=== PATIENT | female | born 1955 | race Hispanic/Latino ===

== ENCOUNTER 2018-06-08 11:21 | Observation (INO) | payer BC ==
[2018-06-08] MEDS ORDERED: Sodium Chloride 0.9% 2,000 ML IV STA (11:53)
--- NOTE | 2018-06-08 12:07 | ED PDOC ---
Arrival/HPI - General Chief Complaint: Fever Time Seen by Provider: 06/08/18 11:38 Historian: Patient - History of Present Illness Narrative History of Present Illness (Text): 06/08/18 11:58 63 year old F with pmh of cardiac stents presents with chief complaint of fever x3days. Patient report visiting PMD this morning who advised her to present to the emergency department for possible dehydration and further evaluation. Patien t mentioned she had flu like symptoms such as myalgia, runny nose and productive cough w/ green sputum. Patient also complains of one episode of vomiting this morning. Denies abodminal pain or dysuria. Patient denies any chills, headache, dizziness, chest pain, shortness of breath, dyspnea on exertion, cough, abdominal pain, nausea, diarrhea, back pain, neck pain, or any other complaint. Time/Duration: < week Symptom Onset: Sudden Symptom Course: Unchanged Activities at Onset: Light Context: Home Past Medical History - Provider Review Nursing Documentation Reviewed: Yes - Tetanus Immunization Tetanus Immunization: Unknown - Cardiac Hx Cardiac Disorders: Yes Hx MT: Yes - Pulmonary Hx Respiratory Disorders: Yes Hx Asthma: Yes ( A CHILD) - Neurological Hx Paralysis: No - HEENT Hx HEENT Disorder: (WEARS RX GLASSES AND CONTACT LENSES) - Endocrine/Metabolic Hx Endocrine Disorders: Yes Hx Hypothyroidism: Yes - Hematological/Oncological Hx Blood Transfusions: No Hx Blood Transfusion Reaction: No - Integumentary Hx Basal Cell Carcinoma: Yes (SKIN CA TO L ARM ELIU AND LEFT LEG CAUTERIZED) - Musculoskeletal/Rheumatological Hx Musculoskeletal Disorders: No - Genitourinary/Gynecological Hx Genitourinary Disorders: (CYST REMOVED VAGINA) - Psychiatric Hx Emotional Abuse: No Hx Physical Abuse: No Hx Substance Use: No - Past Surgical History Past Surgical History: Unable to Obtain - Surgical History Hx Cardiac Catheterization: Yes (8 STENTS) - Anesthesia Hx Anesthesia Reactions: No Hx Malignant Hyperthermia: No - Suicidal Assessment Feels Threatened In Home Enviroment: No Family/Social History - Physician Review Nursing Documentation Reviewed: Yes Family/Social History: Unknown Family HX Smoking Status: Never Smoked Hx Alcohol Use: Yes (SOCIAL) Frequency of alcohol use: Socially Hx Substance Use: No Allergies/Home Meds Allergies/Adverse Reactions: Allergies levofloxacin [From Levaquin] Allergy (Verified 06/08/18 11:42) URTICARIA Home Medications: Home Meds Medication Instructions Recorded Confirmed Levothyroxine Sodium 75 mcg PO DAILY 08/21/15 06/08/18 Rosuvastatin Calcium [Crestor] 20 mg PO DAILY 09/15/17 06/08/18 Aspirin [Adult Low Dose Aspirin EC] 81 mg PO DAILY 06/08/18 06/08/18 Review of Systems - Review of Systems Constitutional: Fevers. absent: Fatigue ENT: Rhinorrhea Respiratory: Cough, Sputum (green). absent: SOB Cardiovascular: absent: Chest Pain, Palpitations Gastrointestinal: absent: Abdominal Pain Genitourinary Female: absent: Dysuria, Hematuria, Urine Output Changes Musculoskeletal: Myalgias Neurological: absent: Headache, Dizziness Physical Exam Vital Signs Reviewed: Yes Vital Signs Temp Pulse Resp BP Pulse Ox 06/08/18 11:43 98.3 F 118 H 16 85/59 L 92 L Temperature: Afebrile Blood Pressure: Hypotensive Pulse: Tachycardic Respiratory Rate: Normal Appearance: Positive for: Well-Appearing, Non-Toxic, Comfortable Pain Distress: Mild Mental Status: Positive for: Alert and Oriented X 3 - Systems Exam Head: Present: Atraumatic, Normocephalic Pupils: Present: PERRL Extroacular Muscles: Present: EOMI Conjunctiva: Present: Normal Mouth: Present: Dry Neck: Present: Normal Range of Motion Respiratory/Chest: Present: Clear to Auscultation, Good Air Exchange. No: Respiratory Distress, Accessory Muscle Use Cardiovascular: Present: Tachycardic. No: Murmurs Abdomen: No: Tenderness, Distention, Peritoneal Signs Back: Present: Normal Inspection Upper Extremity: Present: Normal Inspection. No: Cyanosis, Edema Lower Extremity: Present: Normal Inspection. No: Edema Neurological: Present: GCS=15, CN II-XII Intact, Speech Normal Skin: Present: Warm, Dry, Normal Color. No: Rashes Psychiatric: Present: Alert, Oriented x 3, Normal Insight, Normal Concentration Medical Decision Making ED Course and Treatment: 06/08/18 11:58 Impression: 63 year old F presents with chief complaint of fever x3days. Patient also mentioned she had flu like symptoms such as myalgia, runny nose and productive cough w/ green sputum. Patient also complains of one episode of vomiting this m orning Plan: -- Labs -- Chest X-ray -- Toradol -- Reassess and disposition Prior Visits: Notes and results from previous visits were reviewed. Patient was last seen in the emergency department on Progress Notes: 06/08/18 12:43 Chest X Ray: No active disease 06/08/18 13:[address] Reid who is requesting CT to evaluate for intrabdominal source due to elevated wbc UA shows 10-15wbc and leukocytes. Denies dysuria. However, due to elevated wbc, will treat pending ucx 06/08/18 15:31 IMPRESSION: There is severe mural thickening and edema in the antrum of the stomach consistent with gastritis. 06/08/18 15:31 06/08/18 15:32 - RAD Interpretation Radiology Orders: 06/08/18 11:52 CHEST PORTABLE [RAD] Stat - Medication Orders Current Medication Orders: Sodium Chloride (Sodium Chloride 0.9%) 2,000 mls @ 999 mls/hr IV .Q2H1M STA Stop: 06/08/18 13:53 Discontinued Medications Ketorolac Tromethamine (Toradol) 30 mg IVP STAT STA Stop: 06/08/18 11:54 - Scribe Statement The provider has reviewed the documentation as recorded by the Joy Hager All medical record entries made by the Joy were at my direction and personally dictated by me. I have reviewed the chart and agree that the record accurately reflects my personal performance of the history, physical exam, medical decision making, and the department course for this patient. I have also personally directed, reviewed, and agree with the discharge instructions and disposition. Disposition/Present on Arrival - Present on Arrival Any Indicators Present on Arrival: No History of DVT/PE: No History of Uncontrolled Diabetes: No Urinary Catheter: No History of Decub. Ulcer: No History Surgical Site Infection Following: None - Disposition Have Diagnosis and Disposition been Completed?: Yes Diagnosis: Leukocytosis, UTI (urinary tract infection), Dehydration Disposition: HOSPITALIZED Disposition Time: 13:09 Patient Plan: Observation Condition: FAIR
[2018-06-08 12:30] LABS: BASO # 0.04 K/mm3 (0.0-2.0); BASO % 0.1 % (0.0-3.0); EOS % 0.1 % (1.5-5.0); HEMOGLOBIN 13.4 g/dL (12.0-16.0); LYMPH # 1.1 (1.2-3.4); LYMPH % 3.8 % (22.0-35.0); MEAN CELL VOLUME 92.1 fl (80.0-105.0); MEAN CORPUSCULAR HEMOGLOBIN 31.1 pg (25.0-35.0); MEAN CORPUSCULAR HGB CONC 33.8 g/dl (31.0-37.0); MONO # 1.2 (0.1-0.6); MONO % 3.9 % (1.0-6.0); PLATELET COUNT 292 10^3/uL (120.0-450.0); RBC 4.31 10^6/uL (3.5-6.1); RED CELL DISTRIBUTION WIDTH 12.8 % (11.5-14.5)
[2018-06-08 12:32] LABS: VENOUS BLOOD GAS PO2 37 mm/Hg (30-55); VENOUS BLOOD PH 7.46 (7.32-7.43)
--- NOTE | 2018-06-08 12:37 | RAD ---
Date of service: 06/08/2018 HISTORY: cough COMPARISON: 04/04/2014 TECHNIQUE: 1 view obtained. FINDINGS: LUNGS: No active pulmonary disease. PLEURA: No significant pleural effusion identified, no pneumothorax apparent. CARDIOVASCULAR: No aortic atherosclerotic calcification present. Normal cardiac size. No pulmonary vascular congestion. OSSEOUS STRUCTURES: No significant abnormalities. VISUALIZED UPPER ABDOMEN: Normal. OTHER FINDINGS: None. IMPRESSION: No active disease.
[2018-06-08 12:39] LABS: ALB/GLOB RATIO 0.9 (1.1-1.8); ALBUMIN 3.8 g/dL (3.0-4.8); ALT/SGPT 674 U/L (7-56); AST/SGOT 725 U/L (14-36); BLOOD UREA NITROGEN 11 mg/dL (7-21); CALCIUM 8.6 mg/dL (8.4-10.5); GFR NON-AFRICAN AMERICAN 56; LIPASE 101 U/L (23-300)
[2018-06-08 13:14] LABS: BAND 2 % (0-2); LYMPHOCYTE 5 % (22.0-35.0); MONOCYTE 2 % (1.0-6.0); NEUTROPHIL 91 % (50.0-70.0)
[2018-06-08 13:15] LABS: PLATELET ESTIMATE NORMAL (NORMAL)
--- NOTE | 2018-06-08 13:31 | CP.PCM.HP ---
<Candido Pereyra - Last Filed: 06/08/18 16:31> History of Present Illness - History of Present Illness History of Present Illness: PGY-1 Medicine H&P for Dr. Reid CC: Intermittent fevers HPI: Patient is a 63 year old female with a past medical history of CAD s/p 8 stents, hyperlipidemia, and hypothyroidism presenting with fevers for 3 days. She states that she has been having fevers, chills, generalized fatigue for 3 or 4 days. She admits to having nausea and one episode of vomiting this morning which prompted her to visit her PMD this morning who advised her to present to the emergency department for further evaluation. Patient admits to having flu-like symptoms such as myalgia, runny nose, and a productive cough with green sputum. She states that she lives at home with her son who was recently sick with flu- like symptoms. She denies recent travel, having pets, or sick contacts at work. She denies headache, dizziness, chest pain, shortness of breath, dyspnea on exertion, cough, abdominal pain, diarrhea, back pain, neck pain, hematuria, dysuria, or any other complaints. 12 point ROS reviewed and negative except stated in HPI. PMHx: CAD s/p 8 stents, hyperlipidemia, and hypothyroidism PSHx: 7 cardiac stents in 2015, 1 stent in 2016 Allergies: Levofloxacin- rash Family Hx: Mother had a heart attack at age 70 and hypertension. Father had Parkinson disease. Social history: Denies tobacco or drug use. Occasionally drinks wine with dinner. 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 Lives at home with son. Medications: ASA, Levothyroxine 75mg, Crestor 20mg PMD: Dr. Knowles Marketing Analyst: Dr. Tinajero Present on Admission - Present on Admission Any Indicators Present on Admission: No History of DVT/PE: No History of Uncontrolled Diabetes: No Urinary Catheter: No Decubitus Ulcer Present: No Past Patient History - Tetanus Immunizations Tetanus Immunization: Unknown - Past Social History Smoking Status: Never Smoked - CARDIAC Hx Cardiac Disorders: Yes Hx Heart Attack: Yes - PULMONARY Hx Respiratory Disorders: Yes Hx Asthma: Yes ( A CHILD) - NEUROLOGICAL Hx Paralysis: No - HEENT Hx HEENT Problems: (WEARS RX GLASSES AND CONTACT LENSES) - ENDOCRINE/METABOLIC Hx Endocrine Disorders: Yes Hx Hypothyroidism: Yes - HEMATOLOGICAL/ONCOLOGICAL Hx Blood Transfusions: No Hx Blood Transfusion Reaction: No - INTEGUMENTARY Hx Basil Cell: Yes (SKIN CA TO L ARM ELIU AND LEFT LEG CAUTERIZED) - MUSCULOSKELETAL/RHEUMATOLOGICAL Hx Musculoskeletal Disorders: No - GENITOURINARY/GYNECOLOGICAL Hx Genitourinary Disorders: (CYST REMOVED VAGINA) - PSYCHIATRIC Hx Emotional Abuse: No Hx Physical Abuse: No Hx Substance Use: No - SURGICAL HISTORY Hx Cardiac Catheterization: Yes (8 STENTS) - ANESTHESIA Hx Anesthesia Reactions: No Hx Malignant Hyperthermia: No Meds Allergies/Adverse Reactions: Allergies Allergy/AdvReac Type Severity Reaction Status Date / Time levofloxacin [From Levaquin] Allergy URTICARIA Verified 06/08/18 17:27 Physical Exam - Constitutional Appears: Well, Non-toxic, No Acute Distress - Head Exam Head Exam: ATRAUMATIC, NORMAL INSPECTION - Eye Exam Eye Exam: EOMI, Normal appearance - ENT Exam ENT Exam: Mucous Membranes Moist - Neck Exam Neck exam: Positive for: Normal Inspection - Respiratory Exam Respiratory Exam: Clear to Auscultation Bilateral, NORMAL BREATHING PATTERN. absent: Rales, Rhonchi, Wheezes, Respiratory Distress - Cardiovascular Exam Cardiovascular Exam: REGULAR RHYTHM, +S1, +S2. absent: Gallop, Rubs, Systolic Murmur - GI/Abdominal Exam GI & Abdominal Exam: Normal Bowel Sounds, Soft. absent: Distended, Firm, Guarding, Organomegaly, Tenderness Additional comments: Herrera sign negative. No tenderness at Mcburneys point. - Extremities Exam Extremities exam: Positive for: normal inspection. Negative for: calf tenderness, joint swelling, pedal edema - Back Exam Back exam: NORMAL INSPECTION. absent: CVA tenderness (L), CVA tenderness (R), paraspinal tenderness - Neurological Exam Neurological exam: Alert, CN II-XII Intact, Oriented x3 - Psychiatric Exam Psychiatric exam: Normal Affect, Normal Mood - Skin Skin Exam: Dry, Intact, Normal Color, Warm Additional comments: No rash noted Results - Vital Signs Recent Vital Signs: Last Vital Signs Temp 98.3 F 06/08/18 11:43 Pulse 100 H 06/08/18 13:30 Resp 18 06/08/18 13:30 BP 117/72 06/08/18 13:30 Pulse Ox 96 06/08/18 13:30 - Labs Result Diagrams: 06/08/18 12:00 06/08/18 12:00 Labs: Laboratory Results - last 24 hr 06/08/18 06/08/18 06/08/18 12:00 12:00 12:00 WBC 30.0 H* RBC 4.31 Hgb 13.4 Hct 39.7 MCV 92.1 MCH 31.1 MCHC 33.8 RDW 12.8 Plt Count 292 MPV 9.0 Neut % (Auto) 92.1 H Lymph % (Auto) 3.8 L Hand % (Auto) 3.9 Eos % (Auto) 0.1 L Baso % (Auto) 0.1 Lymph # (Auto) 1.1 L Hand # (Auto) 1.2 H Eos # (Auto) 0.0 Baso # (Auto) 0.04 Absolute Neuts (auto) 27.69 H Neutrophils % (Manual) 91 H Band Neutrophils % 2 Lymphocytes % (Manual) 5 L Monocytes % (Manual) 2 Platelet Evaluation Normal pO2 VBG pH VBG pCO2 VBG HCO3 VBG Total CO2 VBG O2 Sat (Calc) VBG Base Excess VBG Potassium Glucose Lactate FiO2 Sodium 135 Potassium 3.7 Chloride 99 Carbon Dioxide 26 Anion Gap 14 BUN 11 Creatinine 1.0 Est GFR ( Amer) > 60 Est GFR (Non-Af Amer) 56 Random Glucose 135 H Calcium 8.6 Phosphorus 3.0 Magnesium 2.2 Total Bilirubin 1.5 H AST 725 H ALT 674 H Alkaline Phosphatase 524 H Total Protein 8.0 Albumin 3.8 Globulin 4.1 Albumin/Globulin Ratio 0.9 L Lipase 101 Venous Blood Potassium Influenza Typ A,B (EIA) Negative for flu a/b 06/08/18 12:20 WBC RBC Hgb Hct MCV MCH MCHC RDW Plt Count MPV Neut % (Auto) Lymph % (Auto) Hand % (Auto) Eos % (Auto) Baso % (Auto) Lymph # (Auto) Hand # (Auto) Eos # (Auto) Baso # (Auto) Absolute Neuts (auto) Neutrophils % (Manual) Band Neutrophils % Lymphocytes % (Manual) Monocytes % (Manual) Platelet Evaluation pO2 37 VBG pH 7.46 H VBG pCO2 36.0 L VBG HCO3 25.6 VBG Total CO2 26.7 VBG O2 Sat (Calc) 71.5 H VBG Base Excess 2.0 VBG Potassium 3.8 Glucose 138 H Lactate 1.6 FiO2 21.0 Sodium 134.0 Potassium Chloride 101.0 Carbon Dioxide Anion Gap BUN Creatinine Est GFR ( Amer) Est GFR (Non-Af Amer) Random Glucose Calcium Phosphorus Magnesium Total Bilirubin AST ALT Alkaline Phosphatase Total Protein Albumin Globulin Albumin/Globulin Ratio Lipase Venous Blood Potassium 3.8 Influenza Typ A,B (EIA) Assessment & Plan - Assessment and Plan (Free Text) Assessment: Patient is a 63 year old female with a past medical history of CAD s/p 8 stents, hyperlipidemia, and hypothyroidism presenting with fevers for 3 days. Plan: SIRS - Follow up CT abd/pelvis - CXR: no acute disease - WBC: 30,000 - UA: trace LE, few WBC - Follow up procalcitonin - Follow up blood cultures and urine culture - Flagyl 500mg IV Q8 (Started on 06/08) - Rocephin 1g IV QD (Started on 06/08) - Start NS @ 60 mLs/hr - Received 2 boluses of NS in ED Transaminitis - AST: 725 - ALT: 674 - Alkaline phosphatase: 524 - GI consulted, Dr. Betancourt - Follow up CT abd/pelvis - Will consider RUQ ultrasound if CT abd/pelvis is negative - Follow up hepatitis panel - Avoid hepatotoxic agents - Continue to monitor Hyperlipidemia - Hold home Crestor Hypothyroidism - Continue home Synthroid 75mg PO QD Hx of cardiac stents - Continue home ASA 81mg PO QD - Follow up EKG - Last echo (09/15/2017): LVEF of 57% - Last stress test (09/15/2017): abnormal stress test but unchanged from previous stress test in 2017 - Follows up with Dr. Tinajero as outpatient Proophylaxis: - SCD's Patient seen and case discussed with attending, Dr. Reid. Candido Pereyra, PGY-1 <Eliud Reid - Last Filed: 06/11/18 15:34> Results - Vital Signs Recent Vital Signs: Last Vital Signs Temp 98.7 F 06/10/18 06:00 Pulse 82 06/10/18 06:00 Resp 20 06/10/18 06:00 BP 111/69 06/10/18 06:00 Pulse Ox 95 06/10/18 06:00 - Labs Result Diagrams: 06/10/18 06:20 06/10/18 06:20 Labs: Laboratory Results - last 24 hr 06/10/18 06:20 EBV Capsid Ag IgG Ab 124.00 H EBV Capsid Ag IgM Ab <36.00 EBV Nuclear Antigen Ab 67.70 H EBV Interpretation See note Attending/Attestation - Attestation I have personally seen and examined this patient.: Yes I have fully participated in the care of the patient.: Yes I have reviewed all pertinent clinical information: Yes Notes (Text): 06/11/18 15:32 Medical record note made by the resident after discussion with my direction and input after the patient was personally seen and examined by me. I have reviewed the chart and agree that the record accurately reflects by personal performance of the history, physical exam, data review, and medical decision-making, in the course for the patient. I have also personally directed the plan of care. 63 year old female with PMH of CAD s/p 8 stents, hyperlipidemia, and hypothyroidism is admitted w with fevers ,chills, and generalized fatigue for 3 or 4 days. She is found to have leukocytosis WBC 30,000and elevated LFT. AST was elevated at 725; ALT elevated at 674; ALP elevated at 524. CT abdomen/pelvis showed severe mural thickening and edema in the antrum of the stomach consistent with gastritis.; We will start patient on IV antibiotics , will follow up cultures and will get right upper quadrant USG and GI consult. Avoid hypotension and hepatotoxic medications. We will monitor LFT Management plan was discussed in detail with patient. Education was provided.
[2018-06-08 13:39] LABS: PH,URINE 5.5 (4.7-8.0); URINE BILIRUBIN MODERATE (NEGATIVE); URINE BLOOD MODERATE (NEGATIVE); URINE GLUCOSE (UA) NEGATIVE (NEGATIVE); URINE LEUKOCYTE ESTERASE MODERATE Leu/uL (NEGATIVE); URINE PROTEIN 100 mg/dL (<30 mg/dL)
[2018-06-08 13:42] LABS: URINE APPEARANCE TURBID (CLEAR); URINE COLOR YELLOW (YELLOW)
[2018-06-08 13:43] LABS: URINE RBC 0 - 2 /hpf (0-2)
[2018-06-08 13:44] LABS: URINE BACTERIA MANY /hpf; URINE COARSE GRANULAR CAST LARGE /hpf
[2018-06-08] MEDS ORDERED: cefTRIAXone (Rocephin) 2 gm Inj IVPB STA (13:53)
[2018-06-08] MEDS ORDERED: cefTRIAXone 1 GM/100 ML BAG IVPB STA (13:57)
[2018-06-08] MEDS ORDERED: Iohexol 350 MG/100 ML VIAL ONE (14:19)
--- NOTE | 2018-06-08 15:32 | CT ---
Date of service: 06/08/2018 PROCEDURE: CT Abdomen and Pelvis with contrast HISTORY: elevated wbc COMPARISON: None. TECHNIQUE: Contrast dose: 100 cc of Omni 350 Radiation dose: Total exam DLP = 447.2 mGy-cm. This CT exam was performed using one or more of the following dose reduction techniques: Automated exposure control, adjustment of the mA and/or kV according to patient size, and/or use of iterative reconstruction technique. FINDINGS: LOWER THORAX: Unremarkable. LIVER: Unremarkable. No gross lesion or ductal dilatation. GALLBLADDER AND BILE DUCTS: Unremarkable. PANCREAS: Unremarkable. No gross lesion or ductal dilatation. SPLEEN: Unremarkable. ADRENALS: Unremarkable. No mass. KIDNEYS AND URETERS: Unremarkable. No hydronephrosis. No solid mass. VASCULATURE: Unremarkable. No aortic aneurysm. No aortic atherosclerotic calcification or mural plaque present. BOWEL: There is severe mural thickening and edema in the antrum of the stomach consistent with gastritis. APPENDIX: Normal appendix. PERITONEUM: Unremarkable. No free fluid. No free air. LYMPH NODES: Unremarkable. No enlarged lymph nodes. BLADDER: Unremarkable. REPRODUCTIVE: Unremarkable. BONES: No acute fracture. OTHER FINDINGS: None. IMPRESSION: There is severe mural thickening and edema in the antrum of the stomach consistent with gastritis.
[2018-06-08] MEDS: Sodium Chloride 0.9% 1,000 ML IV SCH (17:38)
--- NOTE | 2018-06-08 21:32 | CARD ---
APPROVED REPORT Date of service: 06/08/2018 EKG Measurement Heart [id number] <Conclusion> Normal sinus rhythm Inferior infarct, age undetermined T wave abnormalities Abnormal ECG
[2018-06-08 22:11] VITALS: BMI 25.8
[2018-06-08] MEDS ORDERED: Pneumococcal 23-Valent Vaccine IM ONE (22:11)
[2018-06-08] MEDS ORDERED: Influenza Vaccine 60 mcg/0.5 mL SYR (4YR UP) IM ONE (22:11)
[2018-06-08] MEDS: metroNIDAZOLE IV 500 mg/100 ml 500 MG/100 ML BAG IVPB SCH (22:58)
[2018-06-09] MEDS: metroNIDAZOLE IV 500 mg/100 ml 500 MG/100 ML BAG IVPB SCH ×3 (06:20→21:16)
[2018-06-09 07:14] LABS: BASO # 0.03 K/mm3 (0.0-2.0); BASO % 0.1 % (0.0-3.0); EOS # 0.2 (0.0-0.7); EOS % 0.9 % (1.5-5.0); LYMPH # 1.7 (1.2-3.4); LYMPH % 7.9 % (22.0-35.0); MEAN CELL VOLUME 93.3 fl (80.0-105.0); MEAN CORPUSCULAR HGB CONC 32.2 g/dl (31.0-37.0); MEAN PLATELET VOLUME 9.1 fl (7.0-11.0); MONO # 0.9 (0.1-0.6); MONO % 3.9 % (1.0-6.0); RBC 3.73 10^6/uL (3.5-6.1); RED CELL DISTRIBUTION WIDTH 13.5 % (11.5-14.5); WHITE BLOOD COUNT 22.1 10^3/uL (4.5-11.0)
[2018-06-09 07:30] LABS: ALB/GLOB RATIO 0.9 (1.1-1.8); ALBUMIN 3.1 g/dL (3.0-4.8); ALT/SGPT 399 U/L (7-56); AST/SGOT 278 U/L (14-36); BLOOD UREA NITROGEN 10 mg/dL (7-21); CALCIUM 7.7 mg/dL (8.4-10.5); GFR NON-AFRICAN AMERICAN > 60
[2018-06-09 07:39] LABS: HEMOGLOBIN 11.2 g/dL (12.0-16.0)
--- NOTE | 2018-06-09 07:40 | CP.PCM.PN ---
<Candido Pereyra - Last Filed: 06/09/18 12:01> Subjective - Date & Time of Evaluation Date of Evaluation: 06/09/18 Time of Evaluation: 07:35 - Subjective Subjective: PGY-1 Medicine progress note for Dr. Reid Patient seen and examined at bedside. No acute events overnight. Patient states that she is feeling better and that her appetite is better. Patient is not complaining of any pain. She denies fevers, chills, cough, shortness of breath, chest pain, abdominal pain, nausea, vomiting, diarrhea, dysuria, or any other complaints. Objective - Vital Signs/Intake and Output Vital Signs (last 24 hours): Temp Pulse Resp BP Pulse Ox 99.6 F 101 H 20 121/66 95 06/08/18 17:53 06/08/18 21:58 06/08/18 21:58 06/08/18 17:53 06/08/18 17:53 - Medications Medications: Current Medications Aspirin (Ecotrin) 81 mg PO DAILY [facility] Metronidazole (Flagyl) 500 mg in 100 mls @ 100 mls/hr IVPB Q8 [facility]; Protocol Last Admin: 06/09/18 06:20 Dose: 100 mls/hr Ceftriaxone Sodium (Rocephin 1 Gram Ivpb) 1 gm in 100 mls @ 100 mls/hr IVPB DAILY [facility]; Protocol Sodium Chloride (Sodium Chloride 0.9%) 1,000 mls @ 60 mls/hr IV .[id number] [facility] Last Admin: 06/08/18 17:38 Dose: 60 mls/hr Levothyroxine Sodium (Synthroid) 75 mcg PO DAILY [facility] Pantoprazole Sodium (Protonix Inj) 40 mg IVP Q12 [facility] Last Admin: 06/08/18 22:59 Dose: 40 mg - Labs Labs: 06/08/18 12:00 06/09/18 06:20 - Additional Findings Additional findings: - Constitutional Appears: Well, Non-toxic, No Acute Distress - Head Exam Head Exam: ATRAUMATIC, NORMAL INSPECTION - Eye Exam Eye Exam: EOMI, Normal appearance - ENT Exam ENT Exam: Mucous Membranes Moist - Neck Exam Neck exam: Positive for: Normal Inspection - Respiratory Exam Respiratory Exam: Clear to Auscultation Bilateral, NORMAL BREATHING PATTERN. absent: Rales, Rhonchi, Wheezes, Respiratory Distress - Cardiovascular Exam Cardiovascular Exam: REGULAR RHYTHM, +S1, +S2. absent: Gallop, Rubs, Systolic Murmur - GI/Abdominal Exam GI & Abdominal Exam: Normal Bowel Sounds, Soft. absent: Distended, Firm, Guarding, Organomegaly, Tenderness - Extremities Exam Extremities exam: Positive for: normal inspection. Negative for: calf tenderness, joint swelling, pedal edema - Back Exam Back exam: NORMAL INSPECTION. absent: CVA tenderness (L), CVA tenderness (R), paraspinal tenderness - Neurological Exam Neurological exam: Alert, CN II-XII Intact, Oriented x3 - Psychiatric Exam Psychiatric exam: Normal Affect, Normal Mood - Skin Skin Exam: Dry, Intact, Normal Color, Warm Assessment and Plan - Assessment and Plan (Free Text) Assessment: Patient is a 63 year old female with a past medical history of CAD s/p 8 stents, hyperlipidemia, and hypothyroidism presenting with intermittent fevers. Plan: SIRS - CT abd/pelvis: severe mural thickening and edema in antrum of study consistent with gastritis. - Abdominal ultrasound: No cholelithiasis or biliary dilatation. Normal appearance of liver. - CXR: no acute disease - WBC: 30,000-->22,100 - Abs neutrophils: 27,000-->19,000 - UA: trace LE, few WBC - Follow up procalcitonin - Follow up blood cultures and urine culture - Flagyl 500mg IV Q8 (Started on 06/08) - Rocephin 1g IV QD (Started on 06/08) - Start NS @ 60 mLs/hr - Received 2 boluses of NS in ED Transaminitis - AST: 725-->278 - ALT: 674-->399 - Alkaline phosphatase: 524-->361 - CT abd/pelvis: severe mural thickening and edema in antrum of study consistent with gastritis. - Follow up abdominal ultrasound to rule out gall stones - GI consulted, - Acetaminophen, salicylate levels negative - Follow up hepatitis panel - Avoid hepatotoxic agents - Continue to monitor Hyperlipidemia - Hold home Crestor Hypothyroidism - Continue home Synthroid 75mg PO QD - TSH, Free T4 WNL Hx of cardiac stents - Continue home ASA 81mg PO QD - EKG: NSR @97, No ST changes - Last echo (09/15/2017): LVEF of 57% - Last stress test (09/15/2017): abnormal stress test but unchanged from previous stress test in 2017 - Follows up with Dr. Tinajero as outpatient Proophylaxis: - SCD's Patient seen and case discussed with attending, Dr. Reid. Candido Pereyra, PGY-1 <Eliud Reid - Last Filed: 06/11/18 15:31> Objective - Vital Signs/Intake and Output Vital Signs (last 24 hours): Temp Pulse Resp BP Pulse Ox 98.7 F 82 20 111/69 95 06/10/18 06:00 06/10/18 06:00 06/10/18 06:00 06/10/18 06:00 06/10/18 06:00 - Labs Labs: 06/10/18 06:20 06/10/18 06:20 Attending/Attestation - Attestation I have personally seen and examined this patient.: Yes I have fully participated in the care of the patient.: Yes I have reviewed all pertinent clinical information, including history, physical exam and plan: Yes Notes (Text): 06/11/18 15:31 Medical record note made by the resident after discussion with my direction and input after the patient was personally seen and examined by me. I have reviewed the chart and agree that the record accurately reflects by personal performance of the history, physical exam, data review, and medical decision-making, in the course for the patient. I have also personally directed the plan of care.
[2018-06-09 07:50] LABS: FREE T4 1.61 ng/dL (0.78-2.19)
[2018-06-09 08:02] LABS: BILIRUBIN,DIRECT 0.4 mg/dL (0.0-0.4); GAMMA GLUTAMYL TRANSPEPTIDASE 214 U/L (8-78)
[2018-06-09 08:04] LABS: ACETAMINOPHEN < 10.0 ug/ml (10.0-20.0); SALICYLATE < 1 mg/dL (2.0-20.0)
[2018-06-09 08:12] LABS: TROPONIN I < 0.01 ng/mL
[2018-06-09] MEDS ORDERED: Levothyroxine 75 MCG TAB PO SCH ×2 (10:00→20:06)
--- NOTE | 2018-06-09 10:19 | US ---
Date of service: 06/09/2018 HISTORY: transaminitis COMPARISON: CT abdomen and pelvis from 06/08/2018. TECHNIQUE: Grayscale imaging was performed. FINDINGS: LIVER: Measures 16.0 cm. Normal echogenicity of the liver parenchyma. No mass. No intrahepatic bile duct dilatation. GALLBLADDER: There are no gallstones, wall thickening or pericholecystic fluid. The sonographic Herrera's sign is negative. COMMON BILE DUCT: Measures 4.7 mm. No stones. No dilatation. PANCREAS: Normal in size and echotexture. No mass. No ductal dilatation. RIGHT KIDNEY: Measures 11.4cm. Normal echogenicity. No calculus, mass, or hydronephrosis. LEFT KIDNEY: Measures 11.0cm. Normal echogenicity. No calculus, mass, or hydronephrosis. There is a 7 x 8 x 8 mm simple cyst in the lower pole. SPLEEN: Normal in size and contour. No mass. AORTA: No aneurysmal dilatation. IVC: Unremarkable. OTHER FINDINGS: None. IMPRESSION: Normal sonographic appearance of the liver. No cholelithiasis or biliary dilatation.
[2018-06-09] MEDS: cefTRIAXone 1 gm 1 GM/100 ML BAG IVPB SCH (11:11)
[2018-06-09] MEDS: Sodium Chloride 0.9% 1,000 ML IV SCH (11:12)
[2018-06-09 12:42] LABS: HEPATITIS B SURFACE AG Negative (NEGATIVE)
[2018-06-09 12:48] LABS: HEPATITIS A IGM NEGATIVE (NEGATIVE); HEPATITIS B CORE AB NEGATIVE (NEGATIVE)
[2018-06-09 13:00] LABS: HEPATITIS C ANTIBODY NEGATIVE (NEGATIVE)
[2018-06-09] MEDS: Pantoprazole 40 mg EC Tab PO SCH (16:22)
[2018-06-09 17:01] VITALS: TEMP 98.7
--- NOTE | 2018-06-09 21:51 | CON ---
DATE: 06/09/2018 GASTROENTEROLOGY CONSULTATION REQUESTING PHYSICIAN: Eliud Reid MD REASON FOR CONSULTATION: I have been asked to see this 63-year-old female with a history of coronary artery disease status post eight coronary artery stents, who comes to the hospital with three days of fever, chills, and fatigue. Her son is home with a similar febrile illness. Approximately two weeks ago, the patient had a self-limited course of a diarrheal illness associated with nausea, vomiting and diarrhea, which she thinks she contracted from her grandchildren. The patient recovered from that diarrheal illness and develop these fevers and chills for the last three days. She denies any recent travels, cough, shortness of breath, chest pain, recent abdominal pain, nausea, vomiting, or diarrhea. She denies ingestion of any unusual medications or excessive use of acetaminophen. She denies alcohol abuse. MEDICATIONS AT HOME: Include aspirin, Crestor, and Levoxyl. PAST MEDICAL HISTORY: Again is notable for coronary artery disease status post placement of eight coronary artery stents, hypothyroidism, and hyperlipidemia. PAST SURGICAL HISTORY: Unremarkable. FAMILY HISTORY: Notable for mother with an NC at the age of 75 with Parkinson's. SOCIAL HISTORY: She denies cigarette smoking or alcohol use. 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 PHYSICAL EXAMINATION: GENERAL: Well-developed female, lying in bed, in no acute distress. VITAL SIGNS: Reveal temperature of 98.2, blood pressure 112/72, and heart rate 91. HEENT: Reveals sclerae to be white. Conjunctivae pink. NECK: Supple. CHEST: Lungs are clear. HEART: Exam reveals regular rate and rhythm. ABDOMEN: Soft, nontender. No mass. EXTREMITIES: Show no edema. LABORATORY DATA: Reveal on admission to the hospital white blood cell count of 30,000, this morning it was 22.1. Chemistries reveal AST of 278, ALT of 399, alkaline phosphatase of 361, total bilirubin of 0.6; on admission to the hospital the AST and ALT were 725 and 674 respectively with an alkaline phosphatase of 524. CT of the abdomen and pelvis revealed normal liver and gallbladder as did an ultrasound. No stones were seen. There was no biliary dilatation. Procalcitonin was elevated at 0.9, serum haptoglobin was 491.1. Hepatitis A antibody is negative. Blood cultures negative after 24 hours. IMPRESSION: A 63-year-old female with three days of fevers, chills with leukocytosis and elevated liver enzymes, which are trending downward. I suspect that this is some type of a viral syndrome. Her white blood cell count is also trending downward. CT of the abdomen and pelvis is negative for any acute inflammatory changes or fluid collection. Tox screen was negative for acetaminophen. RECOMMENDATIONS: 1. Check hepatitis B and C serology. 2. We will request Eva-Dominguez serology to rule out mononucleosis. 3. Follow liver enzymes and white blood cell count. Figueroa Dutta MD
[2018-06-10] MEDS: metroNIDAZOLE IV 500 mg/100 ml 500 MG/100 ML BAG IVPB SCH (05:47)
[2018-06-10] MEDS: Pantoprazole 40 mg EC Tab PO SCH (05:48)
[2018-06-10] MEDS: Sodium Chloride 0.9% 1,000 ML IV SCH (05:48)
[2018-06-10 07:05] LABS: BASO # 0.03 K/mm3 (0.0-2.0); BASO % 0.2 % (0.0-3.0); EOS # 0.7 (0.0-0.7); EOS % 4.2 % (1.5-5.0); HEMOGLOBIN 11.1 g/dL (12.0-16.0); LYMPH # 2.1 (1.2-3.4); LYMPH % 13.8 % (22.0-35.0); MEAN CELL VOLUME 92.7 fl (80.0-105.0); MEAN CORPUSCULAR HGB CONC 32.4 g/dl (31.0-37.0); MONO # 0.5 (0.1-0.6); MONO % 3.1 % (1.0-6.0); RBC 3.7 10^6/uL (3.5-6.1); RED CELL DISTRIBUTION WIDTH 13.4 % (11.5-14.5); WHITE BLOOD COUNT 15.4 10^3/uL (4.5-11.0)
[2018-06-10 07:16] VITALS: BP 111/69; PULSE 82; RESP 20; O2SAT 95
[2018-06-10 08:08] LABS: ALB/GLOB RATIO 0.9 (1.1-1.8); ALBUMIN 3.1 g/dL (3.0-4.8); ALT/SGPT 251 U/L (7-56); AST/SGOT 105 U/L (14-36); BLOOD UREA NITROGEN 9 mg/dL (7-21); CALCIUM 8.1 mg/dL (8.4-10.5); GFR NON-AFRICAN AMERICAN > 60
[2018-06-10] MEDS: cefTRIAXone 1 gm 1 GM/100 ML BAG IVPB SCH (09:39)
--- NOTE | 2018-06-10 12:23 | PN ---
DATE: 06/10/2018 SUBJECTIVE: The patient is lying in bed, comfortable. She denies any abdominal pain, nausea, vomiting, diarrhea. She denies any fevers or chills. She is tolerating solid food. PHYSICAL EXAMINATION VITAL SIGNS: Reveal temperature of 98.7, blood pressure 111/69, heart rate is 82. HEENT: Reveal sclerae to be white. Conjunctivae pink. NECK: Supple. CHEST: Lungs are clear. HEART: Reveals regular rate and rhythm. ABDOMEN: Soft and nontender. No hepatomegaly. EXTREMITIES: Show no edema. LABORATORY DATA: Reveals white blood cell count 15.4, hemoglobin 11.1. Chemistries reveal AST down to 105, ALT down to 251, alkaline phosphatase down to 311. IMPRESSION: A 63-year-old female admitted to the hospital with fevers, chills, elevated white blood cell count, elevated liver enzymes. Hepatitis serology is negative. I suspect that the patient's presentation is due to a viral syndrome. Her LFTs and white blood cell count are trending downward. RECOMMENDATIONS 1. The patient is stable, from a GI standpoint to be discharged home. I have asked her to follow up with me in the office where I will follow up per downward trending elevated liver enzymes. 2. Await Eva-Dominguez virus serology. Figueroa Dutta MD
--- NOTE | 2018-06-10 14:24 | CP.PCM.DIS ---
<Candido Pereyra - Last Filed: 06/10/18 17:38> Provider - Provider Date of Admission: 06/08/18 13:40 Attending physician: Eliud Reid MD Primary care physician: Maciel Knowles MD Consults: 06/09/18 08:16 Physician Consult Routine Comment: Consulting Provider: Figueroa Dutta Consulting Physician: Figueroa Dutta Reason for Consult: elevated liver enzymes, leukocytosis Time Spent in preparation of Discharge (in minutes): 45 Diagnosis - Discharge Diagnosis (1) Dehydration Status: Resolved (2) Leukocytosis Status: Resolved (3) Transaminitis Status: Resolved Hospital Course - Lab Results Lab Results: Micro Results 06/08/18 12:30 Blood Blood Culture - Preliminary NO GROWTH AFTER 48 HOURS 06/08/18 12:00 Blood Blood Culture - Preliminary NO GROWTH AFTER 48 HOURS 06/08/18 13:20 Urine Random Urine Culture - Final 50-100,000 CFU/ML. MULTIPLE SPECIES. SUGGEST REPEAT SPECIMEN. Most Recent Lab Values WBC 15.4 10^3/uL (4.5-11.0) H D 06/10/18 06:20 RBC 3.70 10^6/uL (3.5-6.1) 06/10/18 06:20 Hgb 11.1 g/dL (12.0-16.0) L 06/10/18 06:20 Hct 34.3 % (36.0-48.0) L 06/10/18 06:20 MCV 92.7 fl (80.0-105.0) 06/10/18 06:20 MCH 30.0 pg (25.0-35.0) 06/10/18 06:20 MCHC 32.4 g/dl (31.0-37.0) 06/10/18 06:20 RDW 13.4 % (11.5-14.5) 06/10/18 06:20 Plt Count 311 10^3/uL (120.0-450.0) 06/10/18 06:20 MPV 9.0 fl (7.0-11.0) 06/10/18 06:20 Neut % (Auto) 78.7 % (50.0-68.0) H 06/10/18 06:20 Lymph % (Auto) 13.8 % (22.0-35.0) L 06/10/18 06:20 [place] % (Auto) 3.1 % (1.0-6.0) 06/10/18 06:20 Eos % (Auto) 4.2 % (1.5-5.0) 06/10/18 06:20 Baso % (Auto) 0.2 % (0.0-3.0) 06/10/18 06:20 Lymph # (Auto) 2.1 (1.2-3.4) 06/10/18 06:20 [place] # (Auto) 0.5 (0.1-0.6) 06/10/18 06:20 Eos # (Auto) 0.7 (0.0-0.7) 06/10/18 06:20 Baso # (Auto) 0.03 K/mm3 (0.0-2.0) 06/10/18 06:20 Absolute Neuts (auto) 12.12 (1.4-6.5) H 06/10/18 06:20 Neutrophils % (Manual) 91 % (50.0-70.0) H 06/08/18 12:00 Band Neutrophils % 2 % (0-2) 06/08/18 12:00 Lymphocytes % (Manual) 5 % (22.0-35.0) L 06/08/18 12:00 Monocytes % (Manual) 2 % (1.0-6.0) 06/08/18 12:00 Platelet Evaluation Normal (NORMAL) 06/08/18 12:00 Haptoglobin 491.1 mg/dL (30.0-200.0) H 06/09/18 07:35 pO2 37 mm/Hg (30-55) 06/08/18 12:20 VBG pH 7.46 (7.32-7.43) H 06/08/18 12:20 VBG pCO2 36.0 (40-60) L 06/08/18 12:20 VBG HCO3 25.6 mmol/l (21-28) 06/08/18 12:20 VBG Total CO2 26.7 mmol.L (22-28) 06/08/18 12:20 VBG O2 Sat (Calc) 71.5 % (40-65) H 06/08/18 12:20 VBG Base Excess 2.0 mmol/L (0.0-2.0) 06/08/18 12:20 VBG Potassium 3.8 mmol/L (3.6-5.2) 06/08/18 12:20 Sodium 134.0 mmol/L (132-148) 06/08/18 12:20 Chloride 101.0 mmol/L (98-107) 06/08/18 12:20 Glucose 138 mg/dl (65-105) H 06/08/18 12:20 Lactate 1.6 mmol/L (0.7-2.1) 06/08/18 12:20 FiO2 21.0 % 06/08/18 12:20 Sodium 142 mmol/L (132-148) 06/10/18 06:20 Potassium 4.1 mmol/L (3.6-5.0) 06/10/18 06:20 Chloride 105 mmol/L (98-107) 06/10/18 06:20 Carbon Dioxide 28 mmol/L (21-33) 06/10/18 06:20 Anion Gap 12 (10-20) 06/10/18 06:20 BUN 9 mg/dL (7-21) 06/10/18 06:20 Creatinine 0.7 mg/dl (0.7-1.2) 06/10/18 06:20 Est GFR ( Amer) > 60 06/10/18 06:20 Est GFR (Non-Af Amer) > 60 06/10/18 06:20 Random Glucose 99 mg/dL (70-110) 06/10/18 06:20 Calcium 8.1 mg/dL (8.4-10.5) L 06/10/18 06:20 Phosphorus 2.8 mg/dL (2.5-4.5) 06/09/18 06:20 Magnesium 2.1 mg/dL (1.7-2.2) 06/09/18 06:20 Total Bilirubin 0.4 mg/dL (0.2-1.3) 06/10/18 06:20 Direct Bilirubin 0.4 mg/dL (0.0-0.4) 06/09/18 07:35 GGT 214 U/L (8-78) H 06/09/18 07:35 AST 105 U/L (14-36) H D 06/10/18 06:20 ALT 251 U/L (7-56) H 06/10/18 06:20 Alkaline Phosphatase 311 U/L (38-126) H 06/10/18 06:20 Lactate Dehydrogenase 679 U/L (333-699) 06/09/18 07:35 Total Creatine Kinase 91 U/L (35-230) 06/09/18 07:35 Troponin I < 0.01 ng/mL D 06/09/18 07:35 Total Protein 6.5 g/dL (5.8-8.3) 06/10/18 06:20 Albumin 3.1 g/dL (3.0-4.8) 06/10/18 06:20 Globulin 3.5 gm/dL 06/10/18 06:20 Albumin/Globulin Ratio 0.9 (1.1-1.8) L 06/10/18 06:20 Lipase 101 U/L (23-300) 06/08/18 12:00 Procalcitonin 0.90 NG/ML (0.19-0.49) H 06/09/18 06:20 Free T4 1.61 ng/dL (0.78-2.19) 06/09/18 06:20 TSH 3rd Generation 2.78 mIU/mL (0.46-4.68) 06/09/18 06:20 Venous Blood Potassium 3.8 mmol/L (3.6-5.2) 06/08/18 12:20 Urine Color Yellow (YELLOW) 06/08/18 13:20 Urine Appearance Turbid (CLEAR) 06/08/18 13:20 Urine pH 5.5 (4.7-8.0) 06/08/18 13:20 Ur Specific [place] 1.025 (1.005-1.035) 06/08/18 13:20 Urine Protein 100 mg/dL (<30 mg/dL) H 06/08/18 13:20 Urine Glucose (UA) Negative mg/dL (NEGATIVE) 06/08/18 13:20 Urine Ketones Trace mg/dL (NEGATIVE) H 06/08/18 13:20 Urine Blood Moderate (NEGATIVE) H 06/08/18 13:20 Urine Nitrate Negative (NEGATIVE) 06/08/18 13:20 Urine Bilirubin Moderate (NEGATIVE) H 06/08/18 13:20 Urine Urobilinogen 2.0 E.U./dL (<1 E.U./dL) H 06/08/18 13:20 Ur Leukocyte Esterase Moderate [place]/uL (NEGATIVE) H 06/08/18 13:20 Urine RBC 0 - 2 /hpf (0-2) 06/08/18 13:20 Urine WBC 10 - 15 /hpf (0-6) H 06/08/18 13:20 Urine Bacteria Many /hpf (NONE) 06/08/18 13:20 Coarse Granular Casts Large /hpf (NONE) 06/08/18 13:20 Salicylates < 1 mg/dL (2.0-20.0) L 06/09/18 07:35 Acetaminophen < 10.0 ug/ml (10.0-20.0) L 06/09/18 07:35 Hepatitis A IgM Ab Negative (NEGATIVE) 06/09/18 06:20 Hepatitis A Ab Total Antibody neg (NEGATIVE) 06/09/18 07:35 Hep Bs Antigen Negative (NEGATIVE) 06/09/18 06:20 Hep Bs Antibody Negative (NEGATIVE) 06/09/18 07:35 Hep B Core IgM Ab Negative (NEGATIVE) 06/09/18 06:20 Hepatitis C Antibody Negative (NEGATIVE) 06/09/18 06:20 Influenza Typ A,B (EIA) Negative for flu a/b (NEGATIVE) 06/08/18 12:00 - Hospital Course Hospital Course: 63 year old female with a past medical history of CAD s/p 8 stents, hyperlipidemia, and hypothyroidism presented to the ED with fevers for 3 days. She stated that she had been having fevers, chills, and generalized fatigue for 3 or 4 days. She admitted to having nausea and one episode of vomiting the morning of admission which prompted her to visit her PMD who advised her to go to the ED. EKG showed normal sinus @97 bpm; Chest X ray negative; CT abdomen/pelvis showed severe mural thickening and edema in the antrum of the stomach consistent with gastritis. Blood work showed WBC count of 30,000. UA showed trace leuk esterase and few WBC; Flagyl 500mg IV Q8 and Rocephin 1g IV qD were started. AST was elevated at 725; ALT elevated at 674; ALP elevated at 524; GI (Dr. Dutta) was consulted and RUQ ultrasound was negative. Hepatitis and Influenza panels were negative; Tylenol and salicylate levels were negative; Pro-calcitonin was 0.9. Patient responded to fluids and IV antibiotics and her WBC and LFT's trended down. Patient remained to be afebrile. GI cleared patient for discharge and to follow up as outpatient. Patient was instructed to take 7 days course of flagyl and omnicef. She was instructed to hold home Crestor. She was instructed to follow up with her PMD within 3-5 days of discharge for repeat LFT's and WBC count. Patient is medically stable for discharge. Discharge Exam - Additional Findings Additional findings: - Constitutional Appears: Well, Non-toxic, No Acute Distress - Head Exam Head Exam: ATRAUMATIC, NORMAL INSPECTION - Eye Exam Eye Exam: EOMI, Normal appearance - ENT Exam ENT Exam: Mucous Membranes Moist - Neck Exam Neck exam: Positive for: Normal Inspection - Respiratory Exam Respiratory Exam: Clear to Auscultation Bilateral, NORMAL BREATHING PATTERN. absent: Rales, Rhonchi, Wheezes, Respiratory Distress - Cardiovascular Exam Cardiovascular Exam: REGULAR RHYTHM, +S1, +S2. absent: Gallop, Rubs, Systolic Murmur - GI/Abdominal Exam GI & Abdominal Exam: Normal Bowel Sounds, Soft. absent: Distended, Firm, Guarding, Organomegaly, Tenderness - Extremities Exam Extremities exam: Positive for: normal inspection. Negative for: calf tenderness, joint swelling, pedal edema - Back Exam Back exam: NORMAL INSPECTION. absent: CVA tenderness (L), CVA tenderness (R), paraspinal tenderness - Neurological Exam Neurological exam: Alert, CN II-XII Intact, Oriented x3 - Psychiatric Exam Psychiatric exam: Normal Affect, Normal Mood - Skin Skin Exam: Dry, Intact, Normal Color, Warm Discharge Plan - Discharge Medications Prescriptions: Cefdinir [Omnicef] 300 mg PO BID #14 cap metroNIDAZOLE [Flagyl] 500 mg PO TID #21 tab - Follow Up Plan Condition: FAIR Disposition: HOME/ ROUTINE Instructions: Dehydration (DC) Additional Instructions: Take Flagyl 500mg three times daily for 7 days and Omnicef 300mg twice daily for 7 days Follow up with Dr. Knowles within 3-5 days for repeat blood work including WBC and liver function test Hold Crestor until instructed otherwise by Dr. Knowles Please follow up with registered radiation therapist, Dr. Dutta in 1-2 weeks Please resume all other home medications as prescribed Proceed to ED if symptoms return Referrals: Figueroa Dutta MD [Staff Provider] - Maciel Knowles MD [Primary Care Provider] - <Eliud Reid - Last Filed: 06/11/18 15:30> Provider - Provider Date of Admission: 06/08/18 13:40 Attending physician: Eliud Reid MD Primary care physician: Maciel Knowles MD Consults: 06/09/18 08:16 Physician Consult Routine Comment: Consulting Provider: Figueroa Dutta Consulting Physician: Figueroa Dutta Reason for Consult: elevated liver enzymes, leukocytosis Hospital Course - Lab Results Lab Results: Micro Results 06/08/18 12:30 Blood Blood Culture - Preliminary NO GROWTH AFTER 3 DAYS 06/08/18 12:00 Blood Blood Culture - Preliminary NO GROWTH AFTER 3 DAYS 06/08/18 13:20 Urine Random Urine Culture - Final 50-100,000 CFU/ML. MULTIPLE SPECIES. SUGGEST REPEAT SPECIMEN. Most Recent Lab Values WBC 15.4 10^3/uL (4.5-11.0) H D 06/10/18 06:20 RBC 3.70 10^6/uL (3.5-6.1) 06/10/18 06:20 Hgb 11.1 g/dL (12.0-16.0) L 06/10/18 06:20 Hct 34.3 % (36.0-48.0) L 06/10/18 06:20 MCV 92.7 fl (80.0-105.0) 06/10/18 06:20 MCH 30.0 pg (25.0-35.0) 06/10/18 06:20 MCHC 32.4 g/dl (31.0-37.0) 06/10/18 06:20 RDW 13.4 % (11.5-14.5) 06/10/18 06:20 Plt Count 311 10^3/uL (120.0-450.0) 06/10/18 06:20 MPV 9.0 fl (7.0-11.0) 06/10/18 06:20 Neut % (Auto) 78.7 % (50.0-68.0) H 06/10/18 06:20 Lymph % (Auto) 13.8 % (22.0-35.0) L 06/10/18 06:20 [place] % (Auto) 3.1 % (1.0-6.0) 06/10/18 06:20 Eos % (Auto) 4.2 % (1.5-5.0) 06/10/18 06:20 Baso % (Auto) 0.2 % (0.0-3.0) 06/10/18 06:20 Lymph # (Auto) 2.1 (1.2-3.4) 06/10/18 06:20 [place] # (Auto) 0.5 (0.1-0.6) 06/10/18 06:20 Eos # (Auto) 0.7 (0.0-0.7) 06/10/18 06:20 Baso # (Auto) 0.03 K/mm3 (0.0-2.0) 06/10/18 06:20 Absolute Neuts (auto) 12.12 (1.4-6.5) H 06/10/18 06:20 Neutrophils % (Manual) 91 % (50.0-70.0) H 06/08/18 12:00 Band Neutrophils % 2 % (0-2) 06/08/18 12:00 Lymphocytes % (Manual) 5 % (22.0-35.0) L 06/08/18 12:00 Monocytes % (Manual) 2 % (1.0-6.0) 06/08/18 12:00 Platelet Evaluation Normal (NORMAL) 06/08/18 12:00 Haptoglobin 491.1 mg/dL (30.0-200.0) H 06/09/18 07:35 pO2 37 mm/Hg (30-55) 06/08/18 12:20 VBG pH 7.46 (7.32-7.43) H 06/08/18 12:20 VBG pCO2 36.0 (40-60) L 06/08/18 12:20 VBG HCO3 25.6 mmol/l (21-28) 06/08/18 12:20 VBG Total CO2 26.7 mmol.L (22-28) 06/08/18 12:20 VBG O2 Sat (Calc) 71.5 % (40-65) H 06/08/18 12:20 VBG Base Excess 2.0 mmol/L (0.0-2.0) 06/08/18 12:20 VBG Potassium 3.8 mmol/L (3.6-5.2) 06/08/18 12:20 Sodium 134.0 mmol/L (132-148) 06/08/18 12:20 Chloride 101.0 mmol/L (98-107) 06/08/18 12:20 Glucose 138 mg/dl (65-105) H 06/08/18 12:20 Lactate 1.6 mmol/L (0.7-2.1) 06/08/18 12:20 FiO2 21.0 % 06/08/18 12:20 Sodium 142 mmol/L (132-148) 06/10/18 06:20 Potassium 4.1 mmol/L (3.6-5.0) 06/10/18 06:20 Chloride 105 mmol/L (98-107) 06/10/18 06:20 Carbon Dioxide 28 mmol/L (21-33) 06/10/18 06:20 Anion Gap 12 (10-20) 06/10/18 06:20 BUN 9 mg/dL (7-21) 06/10/18 06:20 Creatinine 0.7 mg/dl (0.7-1.2) 06/10/18 06:20 Est GFR ( Amer) > 60 06/10/18 06:20 Est GFR (Non-Af Amer) > 60 06/10/18 06:20 Random Glucose 99 mg/dL (70-110) 06/10/18 06:20 Calcium 8.1 mg/dL (8.4-10.5) L 06/10/18 06:20 Phosphorus 2.8 mg/dL (2.5-4.5) 06/09/18 06:20 Magnesium 2.1 mg/dL (1.7-2.2) 06/09/18 06:20 Total Bilirubin 0.4 mg/dL (0.2-1.3) 06/10/18 06:20 Direct Bilirubin 0.4 mg/dL (0.0-0.4) 06/09/18 07:35 GGT 214 U/L (8-78) H 06/09/18 07:35 AST 105 U/L (14-36) H D 06/10/18 06:20 ALT 251 U/L (7-56) H 06/10/18 06:20 Alkaline Phosphatase 311 U/L (38-126) H 06/10/18 06:20 Lactate Dehydrogenase 679 U/L (333-699) 06/09/18 07:35 Total Creatine Kinase 91 U/L (35-230) 06/09/18 07:35 Troponin I < 0.01 ng/mL D 06/09/18 07:35 Total Protein 6.5 g/dL (5.8-8.3) 06/10/18 06:20 Albumin 3.1 g/dL (3.0-4.8) 06/10/18 06:20 Globulin 3.5 gm/dL 06/10/18 06:20 Albumin/Globulin Ratio 0.9 (1.1-1.8) L 06/10/18 06:20 Lipase 101 U/L (23-300) 06/08/18 12:00 Procalcitonin 0.90 NG/ML (0.19-0.49) H 06/09/18 06:20 Free T4 1.61 ng/dL (0.78-2.19) 06/09/18 06:20 TSH 3rd Generation 2.78 mIU/mL (0.46-4.68) 06/09/18 06:20 Venous Blood Potassium 3.8 mmol/L (3.6-5.2) 06/08/18 12:20 Urine Color Yellow (YELLOW) 06/08/18 13:20 Urine Appearance Turbid (CLEAR) 06/08/18 13:20 Urine pH 5.5 (4.7-8.0) 06/08/18 13:20 Ur Specific [place] 1.025 (1.005-1.035) 06/08/18 13:20 Urine Protein 100 mg/dL (<30 mg/dL) H 06/08/18 13:20 Urine Glucose (UA) Negative mg/dL (NEGATIVE) 06/08/18 13:20 Urine Ketones Trace mg/dL (NEGATIVE) H 06/08/18 13:20 Urine Blood Moderate (NEGATIVE) H 06/08/18 13:20 Urine Nitrate Negative (NEGATIVE) 06/08/18 13:20 Urine Bilirubin Moderate (NEGATIVE) H 06/08/18 13:20 Urine Urobilinogen 2.0 E.U./dL (<1 E.U./dL) H 06/08/18 13:20 Ur Leukocyte Esterase Moderate [place]/uL (NEGATIVE) H 06/08/18 13:20 Urine RBC 0 - 2 /hpf (0-2) 06/08/18 13:20 Urine WBC 10 - 15 /hpf (0-6) H 06/08/18 13:20 Urine Bacteria Many /hpf (NONE) 06/08/18 13:20 Coarse Granular Casts Large /hpf (NONE) 06/08/18 13:20 Salicylates < 1 mg/dL (2.0-20.0) L 06/09/18 07:35 Acetaminophen < 10.0 ug/ml (10.0-20.0) L 06/09/18 07:35 EBV Capsid Ag IgG Ab 124.00 U/mL H 06/10/18 06:20 EBV Capsid Ag IgM Ab <36.00 U/mL 06/10/18 06:20 EBV Nuclear Antigen Ab 67.70 U/mL H 06/10/18 06:20 EBV Interpretation See note 06/10/18 06:20 Hepatitis A IgM Ab Negative (NEGATIVE) 06/09/18 06:20 Hepatitis A Ab Total Antibody neg (NEGATIVE) 06/09/18 07:35 Hep Bs Antigen Negative (NEGATIVE) 06/09/18 06:20 Hep Bs Antibody Negative (NEGATIVE) 06/09/18 07:35 Hep B Core IgM Ab Negative (NEGATIVE) 06/09/18 06:20 Hepatitis C Antibody Negative (NEGATIVE) 06/09/18 06:20 Influenza Typ A,B (EIA) Negative for flu a/b (NEGATIVE) 06/08/18 12:00 Attending/Attestation - Attestation I have personally seen and examined this patient.: Yes I have fully participated in the care of the patient.: Yes I have reviewed all pertinent clinical information, including history, physical exam and plan: Yes Notes (Text): 06/11/18 15:23 Medical record note made by the resident after discussion with my direction and input after the patient was personally seen and examined by me. I have reviewed the chart and agree that the record accurately reflects by personal performance of the history, physical exam, data review, and medical decision-making, in the course for the patient. I have also personally directed the plan of care. 63 year old female with PMH of CAD s/p 8 stents, hyperlipidemia, and hypothyroidism was admitted w with fevers ,chills, and generalized fatigue for 3 or 4 days. She was found to have leukocytosis WBC 30,000and elevated LFT. AST was elevated at 725; ALT elevated at 674; ALP elevated at 524. CT abdomen/pelvis showed severe mural thickening and edema in the antrum of the stomach consistent with gastritis.; GI (Dr. Dutta) was consulted and RUQ ultrasound was negative. Hepatitis and Influenza panels were negative; Tylenol and salicylate levels were negative; Pro-calcitonin was 0.9. Patient responded to fluids and IV antibiotics and her WBC and LFT's trended down. Patient remained to be afebrile. GI cleared patient for discharge and to follow up as outpatient. Patient was instructed to take 7 days course of flagyl and omnicef. She has been advised to hold home Crestor. She was instructed to follow up with her PMD within 3-5 days of discharge for repeat LFT's and WBC count. Management plan was discussed in detail with patient. Education was provided.
[2018-06-11] MEDS ORDERED: Cefpodoxime (Vantin) 200 mg Tab PO SCH (10:00)
== END 2018-06-10 16:39 | disposition home or self-care (01) ==
LOC: ED 11:21 → ERH 13:40 → 3RSO 16:09
PROVIDERS: ADMIT Internal Medicine; ATTEND Internal Medicine
DX: E86.0 Dehydration (principal); K29.70 Gastritis, unspecified, without bleeding; E03.9 Hypothyroidism, unspecified; I25.10 Atherosclerotic heart disease of native coronary artery without angina pectoris; E78.5 Hyperlipidemia, unspecified; R74.0 Nonspecific elevation of levels of transaminase and lactic acid dehydrogenase [LDH]; I25.2 Old myocardial infarction; Z95.5 Presence of coronary angioplasty implant and graft; Z79.82 Long term (current) use of aspirin; Z85.828 Personal history of other malignant neoplasm of skin; Z82.0 Family history of epilepsy and other diseases of the nervous system; Z82.49 Family history of ischemic heart disease and other diseases of the circulatory system
CPT/HCPCS: 36415; 71045; 74177; 76700; 80053; 80074; 81001; 82248; 82550; 82803; 82977; 83010; 83615; 83690; 83735; 84100; 84145; 84439; 84443; 84484; 85025; 86664; 86665; 86706; 86708; 87040; 87086; 87804; 93005; 96360; 96365; 96374; 99284; C9113; G0378; G0480; J0696; J1885; J7030; Q9967

== ENCOUNTER 2018-06-15 06:56 | Outpatient (CLI) | payer BC | END 2018-06-15 06:57 | disposition home or self-care (01) | LOC: LAB 06:56 ==